=== PATIENT | male | born 1995 | race American Indian/Alaskan Native ===

== ENCOUNTER 2017-01-26 11:18 | Emergency (ER) | payer SELFPAY ==
[2017-01-26 11:52] VITALS: BP 129/71
[2017-01-26] MEDS ORDERED: TORADOL IM ONE (15:39)
--- NOTE | 2017-01-26 15:44 | Emergency Department Report ---
ED Back Pain/Injury HPI - General Chief Complaint: Back Pain/Injury Stated Complaint: BACK PAIN Time Seen by Provider: 01/26/17 15:39 Source: patient Limitations: No Limitations - History of Present Illness Initial Comments: 21-year-old -[place] male comes in for lower back pain. Patient reports he has a history of lower back pain and reports that the pain is going down his left leg for the last week. Left leg pain worsening for the last 2 days. He reports he has not taken any pain medication and usually will come to the emergency room for pain management. MD Complaint: back pain - Related Data Previous Rx's Medication Instructions Recorded Last Taken Type HYDROcodone/APAP 5-325 [[place] 1 each PO Q6HR PRN #20 tablet 04/04/14 Unknown Rx 5-325 mg TAB] Naproxen [Naprosyn] 500 mg PO Q12H #30 tablet 04/04/14 Unknown Rx Cyclobenzaprine [Flexeril 10 MG 10 mg PO Q8H PRN #21 tablet 06/05/15 Unknown Rx TAB] HYDROcodone/APAP 5-325 [[place] 1 each PO Q6HR PRN #10 tablet 06/05/15 Unknown Rx 5-325 mg TAB] Prednisone [predniSONE 10 mg 10 mg PO .TAPER #1 tab.ds.pk 06/05/15 Unknown Rx (6-Day Pack, 21 Tabs)] Sulfamethoxazole/Trimethoprim 1 each PO BID #10 tablet 07/31/16 Unknown Rx [Bactrim DS TAB] Ibuprofen [Motrin 800 MG tab] 800 mg PO Q8HR PRN #60 tablet 01/26/17 Unknown Rx Allergies Allergy/AdvReac Type Severity Reaction Status Date / Time No Known Allergies Allergy Verified 06/05/15 14:22 ED Review of Systems ROS: Stated complaint: BACK PAIN Other details as noted in HPI Constitutional: denies: chills, fever Eyes: denies: eye pain, eye discharge, vision change ENT: denies: ear pain, throat pain Respiratory: denies: cough, shortness of breath, wheezing Cardiovascular: denies: chest pain, palpitations Endocrine: no symptoms reported Gastrointestinal: denies: abdominal pain, nausea, diarrhea Genitourinary: denies: urgency, dysuria, frequency, testicular pain, testicular mass Musculoskeletal: back pain Skin: denies: rash, lesions Neurological: denies: headache, weakness, paresthesias Hematological/Lymphatic: denies: easy bleeding, easy bruising ED Past Medical Hx - Past Medical History Previous Medical History?: Yes Additional medical history: back - Surgical History Past Surgical History?: Yes Additional Surgical History: left shoulder surgery - Social History Smoking Status: Current Every Day Smoker Substance Use Type: Alcohol, Marijuana - Medications Home Medications: Home Medications Medication Instructions Recorded Confirmed Last Taken Type HYDROcodone/APAP 5-325 [[place] 1 each PO Q6HR PRN #20 tablet 04/04/14 Unknown Rx 5-325 mg TAB] Naproxen [Naprosyn] 500 mg PO Q12H #30 tablet 04/04/14 Unknown Rx Cyclobenzaprine [Flexeril 10 MG 10 mg PO Q8H PRN #21 tablet 06/05/15 Unknown Rx TAB] HYDROcodone/APAP 5-325 [[place] 1 each PO Q6HR PRN #10 tablet 06/05/15 Unknown Rx 5-325 mg TAB] Prednisone [predniSONE 10 mg 10 mg PO .TAPER #1 tab.ds.pk 06/05/15 Unknown Rx (6-Day Pack, 21 Tabs)] Sulfamethoxazole/Trimethoprim 1 each PO BID #10 tablet 07/31/16 Unknown Rx [Bactrim DS TAB] Ibuprofen [Motrin 800 MG tab] 800 mg PO Q8HR PRN #60 tablet 01/26/17 Unknown Rx ED Physical Exam - General Limitations: No Limitations General appearance: alert, in no apparent distress - Head Head exam: Present: atraumatic, normocephalic - Eye Eye exam: Present: normal appearance, PERRL, EOMI - ENT ENT exam: Present: mucous membranes moist - Cardiovascular Cardiovascular Exam: Present: bradycardia - GI/Abdominal GI/Abdominal exam: Present: soft. Absent: distended, tenderness - Extremities Exam Extremities exam: Present: normal inspection, full ROM. Absent: tenderness - Back Exam Back exam: Present: normal inspection, full ROM, paraspinal tenderness. Absent : tenderness, CVA tenderness (R), CVA tenderness (L), muscle spasm - Neurological Exam Neurological exam: Present: alert, oriented X3 - Psychiatric Psychiatric exam: Present: normal affect, normal mood ED Course Vital Signs 01/26/17 11:49 Temperature 98.1 F Pulse Rate 49 L Respiratory 18 Rate Blood Pressure 129/71 O2 Sat by Pulse 100 Oximetry ED Medical Decision Making - Medical Decision Making Patient has been evaluated by this provider in fast track. Discussed with patient in depth that he needs to have a primary care provider to manage his pain management of his chronic back pain. 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 Patient verbalized understanding Critical care attestation.: If time is entered above; I have spent that time in minutes in the direct care of this critically ill patient, excluding procedure time. ED Disposition Clinical Impression: Chronic back pain greater than 3 months duration Disposition: DISCHARGED TO HOME OR SELFCARE Is pt being admited?: No Does the pt Need Aspirin: No Condition: Stable Instructions: Chronic Back Pain (ED) Additional Instructions: Please take pain medication as prescribed. You can also take [id number] Motrin which is 200 mg tablets you can take up to 4 tablets every 6-8 hours as needed for back pain. He can take Aleve 2 tablets by mouth every 12 hours for pain. It is important for you to follow-up with the primary care provider that can manage her long-term chronic back pain. Prescriptions: Ibuprofen [Motrin 800 MG tab] 800 mg PO Q8HR PRN #60 tablet PRN Reason: Pain Referrals: PRIMARY CARE, [Primary Care Provider] - 3-5 Days [facility] [Outside] - 3-5 Days
== END 2017-01-26 15:58 | disposition home or self-care (01) ==
LOC: ED 11:18
DX: M54.5 Low back pain (principal); G89.29 Other chronic pain; F17.200 Nicotine dependence, unspecified, uncomplicated; F12.10 Cannabis abuse, uncomplicated
CPT/HCPCS: 96372; 99282; J1885

== ENCOUNTER 2018-10-19 16:17 | Emergency (ER) | payer SELFPAY ==
[2018-10-19 16:25] VITALS: BP 149/68
--- NOTE | 2018-10-19 17:28 | Emergency Department Report ---
HPI - General Chief Complaint: Back Pain/Injury Time Seen by Provider: 10/19/18 17:13 - HPI HPI: This 23-year-old male with no prominent medical history presents ED complaining of right-sided back pain radiating down his right leg. Patient states that on Wednesday he was bending when he heard a pop in his back. Patient states the pain has increased in intensity since then. He denies any falls. He denies dysuria, hematuria, abdominal pain. He is able to urinate and have a bowel movement. ED Past Medical Hx - Past Medical History Previous Medical History?: Yes Additional medical history: back - Surgical History Additional Surgical History: left shoulder surgery - Social History Smoking Status: Current Every Day Smoker Substance Use Type: Alcohol, Marijuana - Medications Home Medications: Home Medications Medication Instructions Recorded Confirmed Last Taken Type HYDROcodone/APAP 5-325 [[place] 1 each PO Q6HR PRN #20 tablet 04/04/14 Unknown Rx 5-325 mg TAB] Naproxen [Naprosyn] 500 mg PO Q12H #30 tablet 04/04/14 Unknown Rx HYDROcodone/APAP 5-325 [[place] 1 each PO Q6HR PRN #10 tablet 06/05/15 Unknown Rx 5-325 mg TAB] Prednisone [predniSONE 10 mg 10 mg PO .TAPER #1 tab.ds.pk 06/05/15 Unknown Rx (6-Day Pack, 21 Tabs)] Sulfamethoxazole/Trimethoprim 1 each PO BID #10 tablet 07/31/16 Unknown Rx [Bactrim DS TAB] Cyclobenzaprine [Flexeril 10 MG 10 mg PO Q8H PRN #21 tablet 10/19/18 Unknown Rx TAB] Ibuprofen [Motrin 800 MG tab] 800 mg PO Q8HR PRN #60 tablet 10/19/18 Unknown Rx ED Review of Systems ROS: Stated complaint: SEVERE BACK PAIN Other details as noted in HPI Comment: All other systems reviewed and negative Physical Exam - Physical Exam Vital Signs: Vital Signs 10/19/18 16:22 Temperature 97.3 F L Pulse Rate 63 Respiratory 18 Rate Blood Pressure 149/68 O2 Sat by Pulse 99 Oximetry Physical Exam: GENERAL: Alert and oriented x3, no apparent distress, Normal Gait, atraumatic. HEAD: Head is normocephalic and a-traumatic. LUNGS: Symetrical with respiration, No wheezing, no rales or crackles, CTAB. HEART: S1, S2 present, regular rate and rhythm without murmur, no rubs, no gallops. Non tender to palpation BACK: Full range of motion, no spinal tenderness, no swelling, no ecchymosis no present, Tenderness to palpation of the latissimus dorsi muscles of the back EXTREMITIES/MUSCULOSKELETAL: No cyanosis, clubbing, rash, lesions or edema. Full ROM bilaterally. Pulses 2+ bilaterally. NEUROLOGIC: The patient is cooperative with no focal neurologic deficits. SKIN: Warm and dry, No lesions, No ulceration or induration present. ED Course Vital Signs 10/19/18 16:22 Temperature 97.3 F L Pulse Rate 63 Respiratory 18 Rate Blood Pressure 149/68 O2 Sat by Pulse 99 Oximetry ED Medical Decision Making - Radiology Data Radiology results: report reviewed, image reviewed FINAL REPORT EXAM: CT LUMBAR SPINE WO CON HISTORY: injury/pain TECHNIQUE: Axial helical imaging through the lumbar spine with sagittal and coronal reformatted images obtained. Comparison: None FINDINGS: Bony alignment is normal. The vertebral heights and disc spaces are maintained. Visualization detail the contents of the lumbar canal is limited by artifact. However, there is a possible disc bulge at the L5-S1 level. There is no evidence of fracture or subluxation. The paraspinous soft tissues are unremarkable. IMPRESSION: 1. No evidence of fracture or subluxation. 2. Possible disc bulge L5-S1 level. Visualization detail of the contents of the lumbar canal is limited by artifact. If further imaging is required, MRI may be helpful. Transcribed By: ED Dictated By: CM FOSTER MD Electronically Authenticated By: CM FOSTER MD Signed Date/Time: 10/19/181799 DD/ 57 TD/TT: 10/19/181757 - Medical Decision Making 23-year-old male presents with a lumbar radiculopathy/low back strain Urinalysis, CT scan of the lumbar back obtained. CT scan showed possible disc herniation. Urinalysis negative Discussed this findings with the patient. Discussed with patient and apply heat to affected areas. Discussed with patient and knows she is activities for vital week. Vital signs are normal patient is in no acute distress or respiratory distress. Critical care attestation.: If time is entered above; I have spent that time in minutes in the direct care of this critically ill patient, excluding procedure time. ED Disposition Clinical Impression: Lumbar radiculopathy Disposition: TO HOME OR SELFCARE Is pt being admited?: No Does the pt Need Aspirin: No Condition: Stable Instructions: Low Back Strain (ED), Trigger Point Pain (ED), Lumbar Radiculopathy (ED) Additional Instructions: Make sure to follow up with the primary care physician as discussed. Take all your medications as you've been prescribed. If you have any worsening symptoms or develop new symptoms please return to ED immediately. Prescriptions: Cyclobenzaprine [Flexeril 10 MG TAB] 10 mg PO Q8H PRN #21 tablet PRN Reason: Muscle Spasm Ibuprofen [Motrin 800 MG tab] 800 mg PO Q8HR PRN #60 tablet PRN Reason: Pain Referrals: THERESA MARTIN MD [Referring] - 3-5 Days MARIAN LEE MD [Staff Physician] - 3-5 Days Forms: Work/School Release Form Time of Disposition: 18:45
[2018-10-19] MEDS ORDERED: FLEXERIL PO ONE (17:31)
[2018-10-19 17:50] LABS: Bilirubin,Urine NEG (Negative); Blood,Urine NEG (Negative); Color,Urine Yellow (Yellow); Mucus,Urine FEW /HPF; Protein,Urine <15 mg/dL mg/dL (Negative); WBC,Urine < 1.0 /HPF (0.0-6.0)
--- NOTE | 2018-10-19 18:00 | Cat Scan Report ---
FINAL REPORT EXAM: CT LUMBAR SPINE WO CON HISTORY: injury/pain TECHNIQUE: Axial helical imaging through the lumbar spine with sagittal and coronal reformatted imag es obtained. Comparison: None FINDINGS: Bony alignment is normal. The vertebral heights and disc spaces are maintained. Visualization detail the contents of the lumbar canal is limited by artifact. However, there is a pos sible disc bulge at the L5-S1 level. There is no evidence of fracture or subluxation. The paraspinous soft tissues are unremarkable. IMPRESSION: 1. No evidence of fracture or subluxation. 2. Possible disc bulge L5-S1 level. Visualization detail of the contents of the lumbar canal is limit ed by artifact. If further imaging is required, MRI may be helpful.
== END 2018-10-19 19:02 | disposition home or self-care (01) ==
LOC: ED 16:17
DX: M54.16 Radiculopathy, lumbar region (principal); F17.200 Nicotine dependence, unspecified, uncomplicated
CPT/HCPCS: 72131; 81001; 99284

== ENCOUNTER 2020-11-19 20:42 | Emergency (ER) | payer SELFPAY ==
[2020-11-19] MEDS ORDERED: KETOROLAC 30 MG/1 ML INJ IM ONE ×2 (20:49→23:29)
[2020-11-19] MEDS ORDERED: predniSONE 20 MG TAB PO ONE ×2 (20:49→23:29)
[2020-11-19 20:51] VITALS: BP 145/66
--- NOTE | 2020-11-19 20:54 | Emergency Department Report ---
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 pt drove self to ed and remains ambulatory with steady gait. Complaint: back pain - Related Data Previous Rx's Medication Instructions Recorded Last Taken Type HYDROcodone/APAP 5-325 [[place] 1 each PO Q6HR PRN #20 tablet 04/04/14 Unknown Rx 5-325 mg TAB] Naproxen [Naprosyn] 500 mg PO Q12H #30 tablet 04/04/14 Unknown Rx HYDROcodone/APAP 5-325 [[place] 1 each PO Q6HR PRN #10 tablet 06/05/15 Unknown Rx 5-325 mg TAB] Prednisone [predniSONE 10 mg 10 mg PO .TAPER #1 tab.ds.pk 06/05/15 Unknown Rx (6-Day Pack, 21 Tabs)] Sulfamethoxazole/Trimethoprim 1 each PO BID #10 tablet 07/31/16 Unknown Rx [Bactrim DS TAB] Cyclobenzaprine [Flexeril 10 MG 10 mg PO Q8H PRN #21 tablet 10/19/18 Unknown Rx TAB] Ibuprofen [Motrin 800 MG tab] 800 mg PO Q8HR PRN #60 tablet 10/19/18 Unknown Rx Diclofenac Sodium 50 mg PO Q8H PRN #30 tablet. 11/19/20 Unknown Rx Menthol/Camphor [[place] 1 applicatio TP QID PRN #1 tube 11/19/20 Unknown Rx Ointment] methOCARBAMOL [Robaxin TAB] 750 mg PO BID PRN #20 tab 11/19/20 Unknown Rx predniSONE [Deltasone] 40 mg PO QDAY 5 Days #10 tab 11/19/20 Unknown Rx Allergies Allergy/AdvReac Type Severity Reaction Status Date / Time No Known Allergies Allergy Verified 06/05/15 14:22 ED Review of Systems ROS: Stated complaint: BACK PAIN Other details as noted in HPI Constitutional: denies: chills, fever Eyes: denies: eye pain, eye discharge, vision change ENT: denies: ear pain, throat pain Respiratory: denies: cough, shortness of breath, wheezing Cardiovascular: as per HPI Endocrine: no symptoms reported Gastrointestinal: denies: abdominal pain, nausea, diarrhea Musculoskeletal: back pain, myalgia Skin: denies: rash, lesions Neurological: denies: headache, weakness, numbness, paresthesias Psychiatric: as per HPI Hematological/Lymphatic: denies: easy bleeding, easy bruising ED Past Medical Hx - Past Medical History Additional medical history: back - Surgical History Additional Surgical History: left shoulder surgery - Social History Smoking Status: Unknown if ever smoked Substance Use Type: None - Medications Home Medications: Home Medications Medication Instructions Recorded Confirmed Last Taken Type HYDROcodone/APAP 5-325 [[place] 1 each PO Q6HR PRN #20 tablet 04/04/14 Unknown Rx 5-325 mg TAB] Naproxen [Naprosyn] 500 mg PO Q12H #30 tablet 04/04/14 Unknown Rx HYDROcodone/APAP 5-325 [[place] 1 each PO Q6HR PRN #10 tablet 06/05/15 Unknown Rx 5-325 mg TAB] Prednisone [predniSONE 10 mg 10 mg PO .TAPER #1 tab.ds.pk 06/05/15 Unknown Rx (6-Day Pack, 21 Tabs)] Sulfamethoxazole/Trimethoprim 1 each PO BID #10 tablet 07/31/16 Unknown Rx [Bactrim DS TAB] Cyclobenzaprine [Flexeril 10 MG 10 mg PO Q8H PRN #21 tablet 10/19/18 Unknown Rx TAB] Ibuprofen [Motrin 800 MG tab] 800 mg PO Q8HR PRN #60 tablet 10/19/18 Unknown Rx Diclofenac Sodium 50 mg PO Q8H PRN #30 tablet. 11/19/20 Unknown Rx Menthol/Camphor [[place] 1 applicatio TP QID PRN #1 tube 11/19/20 Unknown Rx Ointment] methOCARBAMOL [Robaxin TAB] 750 mg PO BID PRN #20 tab 11/19/20 Unknown Rx predniSONE [Deltasone] 40 mg PO QDAY 5 Days #10 tab 11/19/20 Unknown Rx ED Physical Exam - General General appearance: alert, in no apparent distress - Head Head exam: Present: atraumatic, normocephalic - Eye Eye exam: Present: normal appearance, EOMI Pupils: Present: normal accommodation - ENT ENT exam: Present: mucous membranes moist - Neck Neck exam: Present: normal inspection, full ROM. Absent: tenderness - Respiratory Respiratory exam: Present: normal lung sounds bilaterally. Absent: respiratory distress, wheezes, stridor, chest wall tenderness - Cardiovascular Cardiovascular Exam: Present: regular rate, normal rhythm, normal heart sounds. Absent: systolic murmur, diastolic murmur, rubs, gallop - GI/Abdominal GI/Abdominal exam: Present: soft, normal bowel sounds. Absent: distended, tenderness - Rectal Rectal exam: Present: deferred - Extremities Exam Extremities exam: Present: normal inspection, full ROM, normal capillary refill. Absent: tenderness - Back Exam Back exam: Present: full ROM, tenderness (no posterior vertebral point tenderness mild reproducible right lower paraspinus muscle tenderness to deep palpation, pos straight leg right ), muscle spasm, paraspinal tenderness. Absent: CVA tenderness (R), CVA tenderness (L), vertebral tenderness - Neurological Exam Neurological exam: Present: alert, oriented X3, CN II-XII intact, normal gait, reflexes normal. Absent: motor sensory deficit - Expanded Neurological Exam Expanded Patient oriented to: Present: person, place, time Speech: Present: fluid speech Cerebellar function: Heel to [place]: Normal Motor strength exam: RUE: 5, LUE: 5, RLE: 5, LLE: 5 DTR: ankle (R): 2+, ankle (L): 2+ Best Eye Response ([place]): (4) open spontaneously Best Motor Response ([place]): (6) obeys commands Best Verbal Response ([place]): (5) oriented [place] Total: 15 - Psychiatric Psychiatric exam: Present: normal affect, normal mood - Skin Skin exam: Present: warm, dry, intact, normal color. Absent: rash ED Course Vital Signs 11/19/20 20:48 Temperature 98.2 F Pulse Rate 70 Respiratory 18 Rate Blood Pressure 145/66 O2 Sat by Pulse 98 Oximetry ED Medical Decision Making - Medical Decision Making This is a low back muscle strain, with neuro deficits, there has been no fall or trauma , plan: nsaids, muscle relaxants, analgesic balm, back exercises, follow up with pcp in 2-3 days. Return to emergency if symptoms worsen. Critical care attestation.: If time is entered above; I have spent that time in minutes in the direct care of this critically ill patient, excluding procedure time. ED Disposition Clinical Impression: Strain of muscle, fascia and tendon of lower back, initial encounter Disposition: TO HOME OR SELFCARE Is pt being admited?: No Does the pt Need Aspirin: No Condition: Stable Instructions: Low Back Sprain or Strain Rehab-SportsMed Prescriptions: predniSONE [Deltasone] 40 mg PO QDAY 5 Days #10 tab Diclofenac Sodium 50 mg PO Q8H PRN #30 tablet.dr PRN Reason: pain methOCARBAMOL [Robaxin TAB] 750 mg PO BID PRN #20 tab PRN Reason: Muscle Spasm Menthol/Camphor [[place] Ointment] 1 applicatio TP QID PRN #1 tube PRN Reason: pain Referrals: PRIMARY CARE, [Primary Care Provider] - 3-5 Days MARIAN LEE MD [Staff Physician] - 3-5 Days Forms: Work/School Release Form(ED) Time of Disposition: 21:23
== END 2020-11-19 23:55 | disposition home or self-care (01) ==
LOC: ED 20:42
DX: S39.012A Strain of muscle, fascia and tendon of lower back, initial encounter (principal); Z79.899 Other long term (current) drug therapy; X58.XXXA Exposure to other specified factors, initial encounter; Y93.89 Activity, other specified; Y92.89 Other specified places as the place of occurrence of the external cause; Y99.8 Other external cause status
CPT/HCPCS: 96372; 99282; J1885; J7512

== ENCOUNTER 2021-01-20 23:41 | Emergency (ER) | payer OTHER ==
[2021-01-21 00:41] VITALS: BP 135/89
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
== END 2021-01-21 04:54 | disposition home or self-care (01) ==
LOC: ED 23:41
DX: M54.5 Low back pain (principal); Z79.899 Other long term (current) drug therapy; V49.49XA Driver injured in collision with other motor vehicles in traffic accident, initial encounter; Y93.89 Activity, other specified; Y92.488 Other paved roadways as the place of occurrence of the external cause; Y99.8 Other external cause status
CPT/HCPCS: 72100; 99283